=== PATIENT | female | born 1935 | race Caucasian/White ===

== ENCOUNTER 2016-05-05 09:41 | Emergency (ER) | payer MEDICARE ==
[~2016-05-05 09:41] MED LIST: ARICEPT5 MG PO; FERREX 150 PLUS1 CAP PO; FLORAJEN3 CAPS460 MG PO; KLONOPIN0.5 MG PO; SYNTHROID50 MCG PO; VITAMIN B-121000 MCG PO; VITAMIN D5000 UNIT PO; VITAMIN D50000 UNIT PO
[2016-05-05 10:58] LABS: ALBUMIN 3.2 g/dL (3.4-5.0); ALKALINE PHOSPHATASE 132 U/L (46-116); ALT (SGPT) 26 U/L (10-68); BILIRUBIN - TOTAL 0.37 mg/dL (0.2-1.3); CALC OSMOLALITY 275 mosm/kg (275-300); CALCIUM 9.1 mg/dL (8.5-10.1); CARBON DIOXIDE 27.8 mmol/L (21.0-32.0); CHLORIDE - SERUM 102 mmol/L (98-107); CREATININE - SERUM 0.8 mg/dL (0.6-1.3); GLUCOSE 101 mg/dL (74-106); POTASSIUM - SERUM 3.9 mmol/L (3.5-5.1); PROTEIN - SERUM 7.6 g/dL (6.4-8.2); SODIUM 138 mmol/L (136-145); UREA NITROGEN 12 mg/dL (7-18); eGFR NON AFRICAN AMERICAN 73 mL/min (90-120)
[2016-05-05 11:00] LABS: ALCOHOL - BLOOD (MEDICAL) < 3.0 mg/dL (0.0-10.0)
[2016-05-05 11:50] LABS: APPEARANCE CLOUDY (CLEAR); BILIRUBIN NEGATIVE (NEGATIVE); COLOR YELLOW (YELLOW); EPITHELIAL CELLS 0-5 /hpf (0-5); GLUCOSE NEGATIVE (NEGATIVE); KETONE NEGATIVE (NEGATIVE); LEUKOCYTE ESTERASE 2+ (NEGATIVE); NITRITE POSITIVE (NEGATIVE); PROTEIN TRACE mg/dL (NEGATIVE); SPECIFIC GRAVITY 1.015 (1.005-1.020); UROBILINOGEN NORMAL (NORMAL)
[2016-05-05 11:51] LABS: BACTERIA MANY /hpf (NONE SEEN); MUCUS <1+ /lpf (NONE SEEN)
[2016-05-05 11:59] LABS: UDS - AMPHET NEGATIVE QUAL (NEGATIVE); UDS - BARB NEGATIVE QUAL (NEGATIVE); UDS - BENZO NEGATIVE QUAL (NEGATIVE); UDS - COCAINE NEGATIVE QUAL (NEGATIVE); UDS - METH NEGATIVE QUAL (NEGATIVE); UDS - OPIATE NEGATIVE QUAL (NEGATIVE); UDS - PCP NEGATIVE QUAL (NEGATIVE); UDS - THC NEGATIVE QUAL (NEGATIVE)
[2016-05-05] MEDS ORDERED: NAMENDA XR14 MG PO (16:01)
== END 2016-05-05 12:05 | disposition other institution (70) ==
LOC: D.ER 09:41
PROVIDERS: Emergency Medicine
DX: F03.90 Unspecified dementia, unspecified severity, without behavioral disturbance, psychotic disturbance, mood disturbance, and anxiety (principal)

== ENCOUNTER 2016-05-05 11:57 | Inpatient (IN) | payer MEDICARE ==
[~2016-05-05] VITALS: Ht 167.6 cm; Wt 65.5 kg
--- NOTE | 2016-05-05 12:15 | NUR ---
RECEIVED PATIENT VIA WHEELCHAIR ACCOMPANIED BY HOSPITAL STAFF AND FAMILY. ADMITTED TO ROOM 1120 WITH DEMENTIA WITH BEHAVIORAL DISTURBANCES. PATIENT VERY CONFUSED AND GRABBING TELLING HIM SHE WANTS TO GO WITH HIM. DISHEVELED APPEARANCE. HANDS DIRTY AND SMELLS OF BOWEL. RELATES PATIENT HAS NOT BATHED IN 2 WEEKS. SHE HAS BEEN REFUSING THE HELP. PATIENT TAKEN TO DAYROOM SO COULD PROCEED WITH ADMISSION PROCESS. SPOKE WITH REAGARDING CODE STATUS AND RELATED BOTH HAVE DISCUSSED THIS AND THEY WANT NO HEROICS. ADMISSION PAPERWORK COMPLETED AND APPROPRIATED PAPERWORK SENT WITH PATIENTS SPOUSE. WNADERING ON UNIT AND EXIT SEEKING.
[2016-05-05] MEDS ORDERED: NAMENDA XR14 MG PO (16:01)
[2016-05-05 17:28] LABS: BASOPHILS 0.5 % (0.0-2.0); EOSINOPHILS 1.6 % (0-7); HEMATOCRIT 33.4 % (36.0-48.0); HEMOGLOBIN 10.7 g/dL (12-16); IMMATURE GRANULOCYTES 0.3 % (0-5); LYMPHOCYTES 13.4 % (15-50); MCH 27.5 pg (26.0-34.0); MCV 85.9 fL (80.0-100.0); MEAN PLATELET VOLUME 9.5 fL (7.4-10.4); MONOCYTES 7.4 % (2-11); NEUTROPHILS 76.8 % (40-80); PLATELET COUNT 421 10x3/uL (130-400); RBC 3.89 10x6/uL (4.00-5.40); RDW 14.2 % (11.5-14.5); WBC 8.7 10x3/uL (4.8-10.8)
[2016-05-05 17:39] LABS: HEMOGLOBIN A1C 5.6 % (4.8-6.0)
[2016-05-05 17:45] VITALS: BP 116/68; BMI 24.0
[2016-05-05 17:51] LABS: ALBUMIN 3.7 g/dL (3.4-5.0); ANION GAP 14.4 mmol/L (8-16); BILIRUBIN - TOTAL 0.45 mg/dL (0.2-1.3); CALCIUM 9.7 mg/dL (8.5-10.1); CARBON DIOXIDE 25.7 mmol/L (21.0-32.0); CHOL - HDL RATIO 3.9 ratio (2.3-4.1); CREATININE - SERUM 0.9 mg/dL (0.6-1.3); LDL-HDL RATIO 2.5 ratio (1.5-3.5); POTASSIUM - SERUM 4.1 mmol/L (3.5-5.1); PROTEIN - SERUM 7.7 g/dL (6.4-8.2); THYROID STIMULATING HORMONE 4.42 uIU/mL (0.36-3.74)
[2016-05-05 20:25] VITALS: BP 164/75
--- NOTE | 2016-05-05 21:00 | NUR ---
RECEIVED IN DAYROOM EXITING SEEKING AT DOORS. SAYS SHE SEES HER , BUT CAN'T TELL ME HIS NAME. SHE ONLY REMEMBER HER FIRST NAME. SEE SHIFT ASSESS- MENT FLOW SHEET FOR FURTHER DETAILS. CONTINUE POC.
[2016-05-06 08:00] VITALS: BP 160/76
--- NOTE | 2016-05-06 10:15 | NUR ---
B) PATIENT IS ANXIOUS, SHE IS CONFUSED ALL SHE CAN SAY IS "I WANT TO GO HOME" AND ASKS ABOUT HER AND HER HOUSE. SHE AMBULATES STEADILY. SHE DOES NOT COMPREHEND SIMPLE COMMANDS. SHE DID NOT KNOW HOW TO WASH HER HANDS OR BRUSH HER TEETH. I) PROVIDE PRESCRIBED MEDS AND REDIRECT NEEDED. R) PATIENT NEEDS MUCH REDIRECTION, DID WRITE A NOTE FOR HER SAYING SHE IS IN THE HOSPITAL, BUT PATIENT WAS NOT ABLE TO UNDERSTAND. SHE IS COMPLIANT WITH MEDS AND SHE DID RECEIVE A SHOWER. P) CONTINUE PLAN OF CARE.
--- NOTE | 2016-05-06 12:00 | NUR ---
PATIENT TALKS NONSTOP, SHE WANTS TO "GO HOME" AND TALKS ABOUT HER AND HER HOUSE, SHE WILL NOT REDIRECT.
[2016-05-06 14:38] VITALS: Ht 167.6 cm; Wt 65.5 kg
--- NOTE | 2016-05-06 15:00 | NUR ---
PATIENT TALKING ABOUT HER HOUSE AND WILL SOMEONE DRIVE HER HOME, PATIENT IS NOT REDIRECTABLE.
--- NOTE | 2016-05-06 17:00 | NUR ---
PATIENT CONSTANTLY TALKING ABOUT HER HOUSE AND GOING HOME, SHE HAS NOT BEEN QUIET ABOUT THIS SUBJECT FOR FIVE MINUTES. SHE DOES NOT COMPREHEND AND SHE DOES NOT REDIRECT.
[2016-05-06 19:30] VITALS: BP 156/67
--- NOTE | 2016-05-06 22:50 | NUR ---
PATIENT IN DAYROOM, IN WHEELCHAIR, LOOKING AT REFLECTION IN GLASS DOOR. ORIENTED TO FIRST NAME ONLY. SHE IS UNABLE TO FOLLOW DIRECTIONS, HAS LOOSE ASSOCIATIONS AND SUSPICIOUS. PATIENT MUMBLES ABOUT HOW TERRIBLE EVERYTHING IS. REFUSED TO TAKE MEDICATION, EVEN AFTER SEVERAL ATTEMPTS AND COAXING. CONTINUE TO MONITOR, CONTINUE PLAN OF CARE
--- NOTE | 2016-05-07 00:21 | NUR ---
PATIENT UP AT MIDNIGHT WALKING DOWN HALLWAY, CONFUSED AND WAS RETURNED TO HER ROOM. PATIENT WAS VERY RELUCTANT AND INSISTENT. PRESSING HER FINGERNAILS INTO STAFFS HAND. FINGERNAILS CAN BE A POTENTIAL PROBLEM. CONTINUE TO MONITOR
[2016-05-07 06:13] LABS: RAPID PLASMA REAGIN Non Reactive (Non Reactive)
--- NOTE | 2016-05-07 06:28 | NUR ---
Patient refused morning medication. She was demanding to know where her was. She does not understand why she is in the hospital after she is reoriented. She is only oriented to self and is unable to follow direction. Patient becomes very agitated especially after she is told that she is in the hospital. continue to monitor, continue plan of care.
[2016-05-07 07:53] VITALS: BP 132/52
--- NOTE | 2016-05-07 13:08 | NUR ---
(B)RECEIVED PATIENT SITTING IN A CHAIR AT THE NURSES STATION. ORIENTED TO SELF ONLY. CONSTANTLY IS LOOKING FOR ALPHONSE, ASKING STAFF "WHERE IS ALPHONSE?" WHEN PATIENT IS REORIENTED TO HER BEING IN THE HOSPITAL AND ALPHONSE IS HOME PATIENT CAN NOT PROCESS THE INFORMATION AND WILL TELL NURSE "I'M IN MY HOUSE. NOW WHERE IS ALPHONSE?" ARGUES RELATING "I'M NOT IN THE HOSPITAL. WHY AM I IN THE HOSPITAL?" THEN ARGUES SHE DOES NOT HAVE AN INFECTION. OBSERVED TALKING TO IMAGES IN THE GLASS DOOR THINKING "ALPHONSE" IS OUT THERE AND HAS COME TO TAKE HER HOME. ALSO EXHIBITS IMPAIRED IMPULSE CONTROL EVIDENCED BY TOSSING A BLANKET ON THE TABLE VERBALIZING "SON OF A AUNDREA." OBSERVED SITTING WITH A BLACK SOCK ON HER RIGHT HAND AND ARM THAT SHE WAS PLACING ITEMS IN. (I)ADMINISTER MEDS AND MONITOR COMPLIANCE. REORIENT NEEDED. (R)MED COMPLIANT. POOR REORIENTATION DUE TO IMPAIRED ABILITY TO COMPREHEND, PROCESS AND MAINTAIN INFORMATION. SHORT TERM MEMORY EXTREMELY EFFECTED AEB BEFORE YOU CAN FINISH ANSWERING PATIENT'S QUESTION SHE IS ALREADY ASKING THE SAME QUESTION AGAIN. EXTREMELY CONFUSED AND DISORIENTED. (P)CONTINUE POC AND MAINTAIN FALL PRECAUTIONS.
[2016-05-07 19:30] VITALS: BP 126/55
--- NOTE | 2016-05-08 03:22 | NUR ---
Patient in dayroom, looking at reflection in door. She is having hallucinations, sees a thin man by table in dayroom. Patient reoriented. She was pleasant, and cooperative with medication. She is very concerned about her . Patient is oriented to self, first and last name and date of however, not oriented to place, time or situation. continue to monitor, continue plan of care.
--- NOTE | 2016-05-08 07:20 | NUR ---
SITTING IN CHAIR IN HALLWAY AT NURSES STATION.ASSESSMENT COMPLETED.IS ORIENTED TO SELF ONLY.COOPERATIVE WITH STAFF.WILL CONTINUE WITH PLAN OF CARE,MONITOR FOR CHANGES,SAFETY.
[2016-05-08 10:16] VITALS: BP 169/67
--- NOTE | 2016-05-08 16:49 | NUR ---
HAS SAT IN DINNING ROOM LOOKING FOR SPOUSE MOST OF DAY.REPEATS THE SAME THING OVER AND OVER "I AM SO WORRIED",AND "I LOVE HIM SO MUCH".VOICES THAT SHE SEES HER OUTSIDE,AND THINKS A VISITOR IS HER EVEN THOUGH SHE SEES HIM UP CLOSE.TEARFUL WITH TEARS OBSERVED ON HER CHEEKS.
[2016-05-08 19:30] VITALS: BP 156/69
--- NOTE | 2016-05-08 20:48 | NUR ---
RECEIVED IN DINING ROOM. SITTING IN CHAIR AT TABLE WITH PEERS SOCIALIZING AT TIMES. WANTING HER WHERE HER IS. CONFUSED. NO SIGNS OF HALLUCINATIONS. REDIRECT AND REORIENT NEEDED. PM MEDS GIVEN ORDERED. CONTINUES TO SIT AT TABLE WITH PEER. CONTINUE PLAN OF CARE
[2016-05-09 10:11] LABS: VITAMIN D 25 HYDROXY 25.7 ng/mL (30.0-100.0)
[2016-05-09 11:16] VITALS: BP 135/82
--- NOTE | 2016-05-09 14:16 | PSY ---
PATIENT NAME:LOWELL JALLOH MEDICAL RECORD: [id number] : 37 LOCATION:[facility] ADMISSION DATE: 05/05/16 ACCOUNT: [id number] PSYCHIATRIC EVALUATION DATE OF EVALUATION: 05/06/16 IDENTIFYING DATA: The patient is 80 years old and she is admitted to the hospital on a voluntary basis. CHIEF COMPLAINT: Confusion. HISTORY OF PRESENT ILLNESS: The patient is severely impaired. She is known to me from previous clinical contact. She was here on this unit about 6 months ago. She has been living with her . She has become acutely confused and when brought to the Emergency Room, became combative and aggressive with staff. She was also found to have a urinary tract infection. PAST MEDICAL HISTORY: Significant for hypothyroidism. PAST PSYCHIATRIC HISTORY: Significant for an established diagnosis of dementia. FAMILY HISTORY: Unknown. ALLERGIES: No known drug allergies. CURRENT MEDICATIONS: Include Klonopin, Synthroid, and Aricept. SOCIAL HISTORY: The patient is . She does have adult children. She has no history of drug or alcohol abuse and apparently functioned reasonably well both socially and occupationally. MENTAL STATUS EXAMINATION: The patient is awake, alert, and oriented to person and place only. Her mood is flat. Her affect is constricted. Thought processes are disorganized and her memory, concentration, and abstraction abilities are severely impaired. She denies that she would seek to harm herself or others and has not been aggressive so far. ASSESSMENT: AXIS I: Senile dementia of the Alzheimer's type with behavioral disturbances. AXIS II: None. AXIS III: Hypothyroidism, urinary tract infection. AXIS IV: Moderate stressors. AXIS V: Global assessment of functioning is 25. PLAN: At this time, the patient is admitted to the hospital secondary to confusion and aggressive behavior. She will be treated with memory enhancing and mood stabilizing medications as well as an antibiotic. Her long-term prognosis is guarded. I do not think it is reasonable to care for her at home, but I am also aware her wants to do this and is probably going to insist upon taking her home. I do not think this rises to the level of reporting it to adult protective services, although I do think he is trying to manage something that is beyond his ability to handle. I will encourage the patient's to seek [facility] placement. TRANSINT:[id number] Voice Confirmation ID: [id number] DOCUMENT ID: [id number] DONTE HADDAD MD at 1416 CC: [id number] DICTATION DATE: 05/06/16 1455 SHAKER TENDER: 05/06/[address] [facility] [address] [id number]
--- NOTE | 2016-05-09 18:10 | NUR ---
RECEIVED PATIENT THIS AM, ALERT AND ORIENTED TO SELF ONLY. EXIT SEEKING AND CONSISTENTLY LOOKING AND ASKING FOR HER . UNABLE TO REDIRECT WITHOUT PATIENT BECOMING ARGUMENTIVE. USE OF PROFANITY AT STAFF AND ATTEMPTS TO BECOME COMBATIVE. NO EVIDENCE OF REORIENTATION. COMPLIANT WITH MEDICATIONS. DISTRATION DETERED COMBATIVENESS. SAFETY MAINTAINED.
[2016-05-09 19:42] VITALS: BP 135/59
--- NOTE | 2016-05-10 02:07 | NUR ---
B) Recieved sitting in day room alert and oriented to self, very confused and looking for her , I) Administered perscribed medications, redirected and oriented as needed, R) Medication compliant, difficult to redirect and no sucess to orient P) Continue plan of care, continue to monitor.
[2016-05-10 08:00] VITALS: BP 130/47
--- NOTE | 2016-05-10 12:14 | NUR ---
Nutrition Follow Up: Chart reviewed. Pt is eating 57% meal avg on a regular diet. Pt is receiving Ensure with meals. Wt loss 5# since admit. +BM 05/09/16. Meds noted. No new labs to assess. Pt with fair po intake at this time. Rec continue current diet, supplement regimen. RD following.
--- NOTE | 2016-05-10 14:35 | PN ---
PATIENT:LOWELL JALLOH MEDICAL RECORD: [id number] LOCATION:[facility] ADMISSION DATE: 05/05/16 PROGRESS NOTE DATE OF SERVICE: 05/09/2016 SUBJECTIVE: The patient's case was discussed with staff. She has no new complaint. OBJECTIVE: The patient denies intent to harm herself or others. She generally tolerates her medicines well. ASSESSMENT: No change in diagnoses. PLAN: The patient has recently been quite aggressive and required p.r.n. medication. I am going to start her on a low dose of Geodon to address this behavioral disinhibition. She has also made some delusional statements. TRANSINT:[id number] Voice Confirmation ID: [id number] DOCUMENT ID: [id number] DONTE HADDAD MD at 1435 CC: [id number] DICTATION DATE: 05/09/16 1512 ACCOUNTS RECEIVABLE ANALYST: 05/09/16 2137 ADM IN [address] [id number] [place] [address]
--- NOTE | 2016-05-10 14:58 | NUR ---
(B)RECEIVED PATIENT SITTING IN A CHAIR AT THE NURSES STATION. ORIENTED TO SELF ONLY RELATING "AT HER HOUSE. SUGARS. I WANT ALPHONSE THOUGH." PREOCCUPIED WITH ALPHONSE AND WANTING TO GO HOME TO ALPHONSE. POOR INTERACTION WITH OTHERS DUE TO IMPAIRED ABILTIY TO COMPREHEND, PROCESS AND MAINTAIN INFORMATION. (I)ADMINISTER MEDS AND MONITOR COMPLIANCE. REORIENT NEEDED. (R)MED COMPLIANT. UNABLE TO REORIENT DUE TO IMPAIRED ABILTIY TO COMPREHEND AND PROCESS INFORMATION. JUST STARES BLANKLY AND TALKS ABOUT ALPHONSE. (P)CONTINUE POC AND MAINTAIN FALL PRECAUTIONS.
--- NOTE | 2016-05-10 19:21 | NUR ---
RECEIVED IN DAYROOM. SITTING IN WHEELCHAIR WITH WITH PEERS AT HER SIDE. CONFUSED. NOT EXIT SEEKING. REDIRECT AND REORIENT NEEDED. REINFORCE FALLS SAFETY. CONTINUES TO SIT QUIETLY IN WHEELCHAIR. CONTINUE PLAN OF CARE
--- NOTE | 2016-05-10 22:00 | NUR ---
PATIENT BECAME INCREASINGLY RESTLESS IN DAYROOM. YELLING OUT FOR ALPHONSE. ORIENTED TO SELF ONLY. VERY CONFUSED. REDIRECT AND REORIENT NEEDED.
[2016-05-11 09:50] VITALS: BP 142/57
--- NOTE | 2016-05-11 12:49 | PN ---
PATIENT:LOWELL BRAR MEDICAL RECORD: [id number] LOCATION:[facility] ADMISSION DATE: 05/05/16 PROGRESS NOTE DATE OF SERVICE: 05/10/2016 SUBJECTIVE: The patient's case was discussed with staff. She has no new complaint. OBJECTIVE: The patient denies intent to harm herself or others. She is oriented only to person. Her mood is angry. Her affect is constricted. ASSESSMENT: No change in diagnoses. PLAN: The patient is calmer today, but I am afraid that I may have given her too much Geodon and I am going to watch for accumulation and sedation. A 40 mg a day may be too much for this elderly woman to tolerate, especially since she is already taking Klonopin. I have asked for her to be tested by Dr. Caroline Shell, a neuropsychologist, indicates that she tested Mrs. Brar in the past. She was severe and that she is too severe to test at this time. TRANSINT:[id number] Voice Confirmation ID: [id number] DOCUMENT ID: [id number] DONTE HADDAD MD at 1249 CC: [id number] DICTATION DATE: 05/10/16 1444 BLADDER TRIMMER: 05/10/16 1721 ADM IN [place] [id number] [place] [id number]
--- NOTE | 2016-05-11 16:27 | NUR ---
(B)RECEIVED PATIENT SITTING IN A CHAIR AT THE NURSE'S STATION.ORIENTED TO SELF ONLY. MAKES UNRECOGNIZABLE SOUNDS AT TIMES. CUSRSES RANDOMLY. OBSERVED RUBBING A MALE PATIENT ON THE LEG. DOES NOT FOLLOW THE TOPIC OF CONVERSATIONM. (I)ADMINSTER MEDS AND MONITOR COMPLIANCE. REDIRECT FOR INAPPROPRIATE TOUCHING. (R)MED COMPLIANT. POOR REDIRECTION AND STARTS MUMBLING TO SELF AND REPEATING THE SAME WORDS OVER AND OVER AGAIN. IMPAIRED ABILITY TO COMPREHEND, PROCESS AND MAINTAIN INFORMATION. (P)CONTINUE POC AND MAINTAIN FALL PRECAUTIONS.
[2016-05-11 19:29] VITALS: BP 139/67
--- NOTE | 2016-05-11 23:16 | NUR ---
PATIENT IN HALLWAY IN CHAIR, ORIENTED TO FIRST NAME, CALM AND HAPPY. UNABLE TO FOLLOW CONVERSATION. COMPLIANT WITH MEDICATION, DOESN'T SEEM TO BE HALLUCINATING AT THIS TIME. CONTINUE TO MONITOR, CONTINUE PLAN OF CARE
[2016-05-12 08:30] VITALS: BP 124/60
--- NOTE | 2016-05-12 14:55 | NUR ---
(B)RECEIVED PATIENT SITTING IN A CHAIR AT THE NURSE'S STATION. ORIENTED TO SELF ONLY. DOES NOT KNOW SHE IS IN THE HOSPITAL AND IS FREQUENTLY LOOKING FOR ALPHONSE. INTRUSSIVE WITH A FEMALE THINKING SHE IS HER ALPHONSE AND WILL ARGUE WITH STAFF RELATING THAT IS HER . TRIES TO CARRY ON A CONVERSATION WITH THIS PATIENT IF IT IS HER . PATIENT PULLED HER SHIRT UP EXPOSING HER BREAST TO THIS FEMALE PATIENT. (I)ADMINISTER MEDS AND MONITOR COMPLIANCE. REDIRECT FOR INTRUSSIVE BEHAVIOR.(R)MED COMPLIANT. REMAINS CONFUSED AND DELUSIONAL. ARGUES WITH STAFF REGARDING THE DELUSION OF A FEMALE PATIENT BEING HER AND CALLING STAFF "YOU GOD DAMN SON OF A BITCH. YELLED OUT AT STAFF WHEN HER VISITED AND STAFF WAS TRYING TO GET HER TO GO TO THE DINING ROOM AND VISIT. UNABLE TO SEPARATE FANTASY FROM REALITY. (P)CONTINUE POC AND MAINTAIN FALL PRECAUTIONS.
--- NOTE | 2016-05-12 15:28 | PN ---
PATIENT:LOWELL JALLOH MEDICAL RECORD: [id number] LOCATION:[facility] ADMISSION DATE: 05/05/16 PROGRESS NOTE DATE OF SERVICE: 05/11/2016 SUBJECTIVE: The patient's case was discussed with staff. She has no new complaint. OBJECTIVE: The patient is sedated as I had feared yesterday. She is in good behavioral control, but that is not an improvement in her condition. She is simply being given too much medicine. ASSESSMENT: No change in diagnoses. PLAN: The patient will be given the same medications, but at a lower dose. I am going to cut the Ativan down. I am going to cut the Klonopin down by 1/3 and the Geodon by 1/2. It may take a couple of days for this to re-equilibrate, but it well. TRANSINT:[id number] Voice Confirmation ID: [id number] DOCUMENT ID: [id number] DONTE HADDAD MD at 1528 CC: [id number] DICTATION DATE: 05/11/16 1252 NURSE REVIEWER: 05/11/16 2146 ADM IN [facility] [address] [place] [address]
[2016-05-12 22:36] VITALS: BP 126/60
--- NOTE | 2016-05-13 01:55 | NUR ---
PATIENT IN DINING ROOM, SITTING ALONE AT TABLE, SEEMING DEPRESSED. SHE REMEMBERED THAT HER CAME TO SEE HER TODAY. SHE SAID SHE MISSES HIM. PATIENT REDIRECTED, STARTED SMILING. SHE IS ORIENTED TO SELF, NOT HALLUCINATING, COMPLIANT WITH MEDICATION. CONTINUE TO MONITOR.
[2016-05-13 08:30] VITALS: BP 123/59
[2016-05-13] MEDS ORDERED: NAMENDA5 MG PO (12:10)
[2016-05-13] MEDS ORDERED: ZOLOFT50 MG PO (12:11)
[2016-05-13] MEDS ORDERED: GEODON20 MG PO (12:11)
[2016-05-13] MEDS ORDERED: FLORAJEN3 CAPS460 MG PO (12:11)
[2016-05-13] MEDS ORDERED: SYNTHROID75 MCG PO (12:11)
--- NOTE | 2016-05-13 12:32 | NUR ---
B) PATIENT IS AWAKE AND ALERT, SHE IS CONFUSED. SHE DOES NOT KNOW WHERE SHE IS LOCATED, SHE CALLS OUT FOR [facility]", BUT SHE BELIEVES THE MEN HERE ARE "[facility]" SHE CAN AMBULATE, BUT SHE IS SLOW AND UNSTEADY. I) PROVIDE PRESCRIBED MEDS. R) PATIENT IS COMPLIANT WITH MEDS, SHE REDIRECTS, BUT SHE REQUIRES GENTLE REDIRECTION, CALM, SOFT VOICE AND A SMILE. PATIENT HAS NO UNDERSTANDING EVEN IF SHE ASKS A QUESTION AND STAFF ANSWER SHE DOES NOT UNDERSTAND. P) CONTINUE PLAN OF CARE.
--- NOTE | 2016-05-13 18:20 | NUR ---
PATIENT WALKED INTO BATHROOM AND SHE PULLED HER PANTS DOWN BEFORE SHE REACHED THE TOILET AND URINATED ON THE FLOOR THEN SLIPPED ON THE FLOOR. PATIENT HAS A REDDENED AREA ON OUTER PART OF HER LEFT KNEE, NO OTHER NOTICEABLE INJURIES, PATIENT ABLE TO DO AROM IN ALL FOUR EXTREMITIES. PATIENT IS CALM, VSS, BP 97/52, T 98.2, R 18, P 76 SPO2 95%.
--- NOTE | 2016-05-13 18:28 | NUR ---
PAGED DR. ROCHE TO LET HIM KNOW PATIENT FELL.
--- NOTE | 2016-05-13 18:28 | NUR ---
CALLED AND SPOKE TO PATIENT'S SPOUSE ABOUT HER FALL. HE SAID "I KNOW THAT'S WHY I CAN'T TAKE CARE OF HER HERE ANYMORE".
[2016-05-13 19:38] VITALS: BP 162/60
--- NOTE | 2016-05-13 22:00 | NUR ---
B) RECEIVED IN DAYROOM SITTING IN CHAIR, ALERT TO SELF ONLY, VERY CONFUSED. CALM AND COOPERATIVE WITH ASSESSMENT. NO SIGNS OF AGGRESSION NOTED. I) PROVIDE PRESCRIBED MEDICATIONS AND MONITOR COMPLIANCE. REDIRECT AND REORIENT NEEDED. VSS. R) MEDICATION COMPLIANT CRUSHED IN APPLESAUCE. P) CONTINUE CURRENT PLAN OF CARE.
[2016-05-14 10:36] VITALS: BP 140/56
--- NOTE | 2016-05-14 12:49 | NUR ---
B) PATIENT IS VERY CONFUSED AND SHE HAS NO IDEA WHERE SHE IS LOCATED, SHE KEEPS THINKING THAT SOME OF THE MEN AND OTHER WOMEN ARE HER AND FOR SOME REASON SHE HAS LIFTED HER BLOUSE AT TIMES. SHE AMBULATES, BUT SHE IS UNSTEADY AND SLOW. I) PROVIDE PRESCRIBED MEDS AND REDIRECT NEEDED. R) PATIENT IS COMPLIANT WITH MEDS, SHE DID ALLOW STAFF TO FIX HER HAIR IT WAS ALL OVER. P) CONTINUE PLAN OF CARE.
[2016-05-14 19:30] VITALS: BP 118/53
--- NOTE | 2016-05-14 20:30 | NUR ---
B)RECEIVED IN DAYROOM SITTING ON SOFA WATCHING TV. CALM AND COOPERATIVE WITH ASSESSMENT AND CARE. AMBULATES SLOWLY IN DAYROOM AT TIMES. SHE DOES GO TO A MALE PATIENT AND TRIES TO CONSOLE HIM. I) ADMINISTER PRESCRIBED MEDS AND REDIRECT PATIENT NEEDED TO APPROPRIATE BEHAVIOR, VSS. R) MEDICATION COMPLIANT. RESTLESS TONIGHT, BUT QUIET. WILL CONTINUE WITH CURRENT POC.
[2016-05-15 07:00] VITALS: BP 130/51
--- NOTE | 2016-05-15 08:10 | NUR ---
HALDOL 2MG IM TO RT BUTTOCK GIVEN DUE TO HER BEING VERY ARGUMENTIVE ,ATTEMPTING TO HIT THIS NURSE AND REFUSING TO GET OUT OF BED.
--- NOTE | 2016-05-15 08:45 | NUR ---
MUCH CALMER AND MORE COOPERATIVE NOW.IS ORIENTED TO SELF ONLY.VOICES SHE IS IN [place].CAN AMBULATE BUT IS SITTING IN RECLINER.WILL CONTINUE WITH PLAN OF CARE,MONITOR FOR CHANGES AND SAFETY.
[2016-05-15 19:34] VITALS: BP 118/80
--- NOTE | 2016-05-16 00:39 | NUR ---
B)Recieved sitting in the Day room, alert and oriented to self, confused and looking for her , I) Administered perscribed medications and redirected as needed, R) Medication compliant, cooperative with care and assessment, P) Continue plan of care, continue to monitor.
[2016-05-16 09:10] VITALS: BP 165/65
--- NOTE | 2016-05-16 09:50 | NUR ---
B.) Alert and oriented to self only. Patient has no insight to place or situation. I.) Administer medications and monitor compliance. Reorient and redirect as need. Encourage group participation. Monitor safety. R.) Compliant with medications. Calm and cooperative with care. Sits quietly in chair and occasionally ambulates on unit. No evidence of reorientation. Good behavior control with no aggression. Safety maintained. P.) Continue with plan for discharge today.
--- NOTE | 2016-05-16 10:54 | PN ---
PATIENT:LOWELL JALLOH MEDICAL RECORD: [id number] LOCATION:[facility] ADMISSION DATE: 05/05/16 PROGRESS NOTE DATE OF SERVICE: 05/13/2016 SUBJECTIVE: No new complaint. OBJECTIVE: The patient has been doing overall better. According to staff, she is sleeping better. She is tolerating medications without difficulty. [facility] PHYSICAL EXAMINATION: On exam, mood is euthymic. Affect is somewhat shallow. Speech is rather terse. Content of thought is negative for overt psychosis. Sensorium is unchanged. ASSESSMENT: No change in diagnoses. PLAN: 1. Maintain all current medications. 2. Anticipate discharge early next week. TRANSINT:[id number] Voice Confirmation ID: [id number] DOCUMENT ID: [id number] HERIBERTO BACA III, MD at 1054 CC: [id number] DICTATION DATE: 05/13/16 1228 COP EXAMINER: 05/13/168 ADM IN [id number] [place] [address]
--- NOTE | 2016-05-16 10:56 | NUR ---
called and updated pt's spouse Evens Brar on pt discharging today to the [facility] at 1300. reviewed discharge information and verbalized understanding. thanked staff for all of the help and the work we did to make his better. called [facility] and updated them on discharge today with pickup time.
--- NOTE | 2016-05-16 13:35 | NUR ---
Report given to [facility] staff nurse Araseli Wilson transport[facility]orazon here to transport patient. Patient discharged with no incident. All personal belongings released to patient. Patient spouse to meet her at facility.
--- NOTE | 2016-05-17 11:40 | PN ---
PATIENT:LOWELL JALLOH MEDICAL RECORD: [id number] LOCATION:[facility] ADMISSION DATE: 05/05/16 PROGRESS NOTE DATE OF SERVICE: 05/16/2016 SUBJECTIVE: No new complaint. OBJECTIVE: The patient has done well over the weekend. She is tolerating medications well. She is due for discharge today to the [facility]. On exam, mood is euthymic. Affect bland. Speech is rather terse. Content of thought is unchanged. Sensorium unchanged. ASSESSMENT: No change in diagnosis. PLAN: 1. We will maintain current treatment plan. 2. Plan discharge for later today. TRANSINT:[id number] Voice Confirmation ID: [id number] DOCUMENT ID: [id number] HERIBERTO BACA III, MD at 1140 CC: [id number] DICTATION DATE: 05/16/16 1138 CLINICAL LAB SPECIALIST: 05/16/16 1436 DIS IN 05/16/[address] [facility] [address] [place] [address]
--- NOTE | 2016-05-23 14:12 | PN ---
PATIENT:LOWELL JALLOH MEDICAL RECORD: [id number] LOCATION:[facility] ADMISSION DATE: 05/05/16 PROGRESS NOTE DATE OF SERVICE: 05/12/2016 SUBJECTIVE: The patient's case was discussed with staff. She has no new complaint. OBJECTIVE: The patient is quite confused. My concerns about sedation are incorrect. She has decided that a woman who is also a patient here is her . Trying to explain to her that that it is not her is not effective. The patient, who is the object of this is very distressed by the situation and keeps on trying to explain she is not her . The situation is potentially volatile. ASSESSMENT: No change in diagnoses. PLAN: The patient will be maintained on current medicines, but I am going to start a low dose of Zoloft for antidepressant effect. In addition to this, I am going to put her back on the Klonopin at a higher dose of 0.5 mg 3 times daily. TRANSINT:[id number] Voice Confirmation ID: [id number] DOCUMENT ID: [id number] DONTE HADDAD MD at 1412 CC: [id number] DICTATION DATE: 05/12/16 1531 ROUTING MACHINE OPERATOR: 05/12/16 2224 DIS IN 05/16/16 [id number] [place] [address]
--- NOTE | 2016-05-25 17:40 | DS ---
PATIENT:LOWELL JALLOH :39 MEDICAL RECORD: [id number] DISCHARGE SUMMARY ADMISSION DATE: 05/05/16 DISCHARGE DATE: 05/16/16 Psychiatric Discharge Summary IDENTIFYING DATA: The patient is 80 years old and she was admitted to the hospital on a voluntary basis secondary to confusion. The patient is severely impaired and is known to me from previous contact. She was here on this particular unit of the hospital about 6 months ago. She has been living with her . She became acutely confused and was brought to the Emergency Room, combative and aggressive with staff. HOSPITAL COURSE: The patient was admitted to the hospital and fully evaluated from both a medical, psychological, and social standpoint. She was found to have a urinary tract infection, which was treated with an antibiotic. This did help, but she also needed adjustments in her memory enhancing and mood stabilizing medications. She subsequently showed significant improvement and was transitioned out of the hospital. DISCHARGE DIAGNOSES: AXIS I: Senile dementia of the Alzheimer's type with behavioral disturbances. AXIS II: None. AXIS III: Hypothyroidism, urinary tract infection. AXIS IV: Moderate stressors. AXIS V: Global assessment of functioning is 35. PLAN: At the time of discharge, the patient was in good behavioral control with limited insight about her condition. She was tolerating her medicines well and did not represent an acute risk to herself or others. Her long-term prognosis is guarded. TRANSINT:[id number] Voice Confirmation ID: [id number] DOCUMENT ID: [id number] DONTE HADDAD MD at 1740 CC: [id number] DICTATION DATE: 05/24/16 1438 TANK REFINISHER: 05/25/16 0255 DIS IN 05/16/16 [facility] [address] [place] [address]
== END 2016-05-16 13:35 | disposition home or self-care (01) | DRG 57 ==
LOC: D.PSYCH 11:57
PROVIDERS: ADMIT Psychiatry & Neurology Psychiatry
DX: G30.1 Alzheimer's disease with late onset (principal); F02.81 Dementia in other diseases classified elsewhere, unspecified severity, with behavioral disturbance; F05 Delirium due to known physiological condition; N39.0 Urinary tract infection, site not specified; E03.9 Hypothyroidism, unspecified; B96.20 Unspecified Escherichia coli [E. coli] as the cause of diseases classified elsewhere; E78.5 Hyperlipidemia, unspecified; D64.9 Anemia, unspecified

== ENCOUNTER 2016-05-28 19:46 | Inpatient (IN) | payer MEDICARE ==
[~2016-05-28] VITALS: Ht 172.7 cm; Wt 73.9 kg
--- NOTE | ~2016-05-28 | CN ---
PATIENT NAME:LOWELL JALLOH MEDICAL RECORD: [id number] : 39 LOCATION:[facility] ADMIT DATE: 05/30/16 ACCOUNT: [id number] CONSULTING PHYSICIAN: LISA DIXON MD REFERRING PHYSICIAN: ROSELIA KEVIN MD DATE OF CONSULTATION: 05/30/2016 Gastrointestinal Consultation REFERRING PHYSICIAN: Roselia Kevin MD HISTORY OF PRESENT ILLNESS: The patient is a 80-year-old white female with severe underlying dementia, who was basically admitted after the staff here saw some blood in her stool for the past few days. She was subsequently admitted for further evaluation. She can give no history whatsoever. However, history is obtained from her . As far as she knows, she has never had an endoscopy. She denies any abdominal pain. PAST MEDICAL HISTORY: As above. She also has hypothyroidism. ALLERGIES: No drug allergies. HOME MEDICATIONS: Include Klonopin, Namenda, Zoloft, Geodon and Synthroid. FAMILY HISTORY: Negative for GI disease. SOCIAL HISTORY: The patient is a nonsmoker, nondrinker. REVIEW OF SYSTEMS: Noncontributory other than HPI. PHYSICAL EXAMINATION: GENERAL: Reveals an elderly white female in no acute distress, but is obviously demented. VITAL SIGNS: Stable. She is afebrile. CHEST: Clear. HEART: Regular rate and rhythm. ABDOMEN: Soft, nontender. EXTREMITIES: No edema. LABORATORY DATA: Reveals a white count of 8000, hematocrit 29, MCV of 85, platelet count 328,000. Electrolytes normal. BUN 19, creatinine 0.8. Liver enzymes are normal. Albumin is low at 2.8. She is heme positive. CT of the abdomen and pelvis reveals abnormal appearance of the ascending colon and cecum suggesting ____ core mass in both areas, very suggestive of malignancy. She also has cholelithiasis, but otherwise her exam was normal. IMPRESSION 1. New onset of gastrointestinal bleed of unclear etiology, most likely due to her right-sided colon cancer is noted on her CT of the abdomen. 2. Severe dementia. RECOMMENDATION: 1. Discussed at length with her . He does not want to put her through a colonoscopy, surgery, etc. with her severe underlying dementia. He is wanting conservative/supportive management, possibly with hospice involvement. I CONSULT REPORT [id number] LOWELL JALLOH certainly agree with this decision. 2. Check a CEA level, possibly repeat in a month to try to "confirm" her malignancy. 3. Transfuse as needed. 4. She is at risk for developing an obstruction in the right side of her colon. 5. We will see on a p.r.n. basis. TRANSINT:[id number] Voice Confirmation ID: [id number] DOCUMENT ID: [id number] LISA DIXON MD CC: ROSELIA KEVIN MD [id number] DICTATION DATE: 05/30/16 1627 SCIENTIFIC GLASS BLOWER: 05/30/16 2100 ADM IN [facility] [address] [id number]
[~2016-05-28 19:46] MED LIST changes: +GEODON20 MG PO; +NAMENDA XR14 MG PO; +NAMENDA5 MG PO; +SYNTHROID75 MCG PO; +ZOLOFT50 MG PO
[2016-05-28 20:53] LABS: BASOPHILS 0.1 % (0.0-2.0); EOSINOPHILS 0.4 % (0-7); HEMATOCRIT 29.6 % (36.0-48.0); HEMOGLOBIN 9.2 g/dL (12-16); IMMATURE GRANULOCYTES 0.4 % (0-5); LYMPHOCYTES 8.2 % (15-50); MCH 26.4 pg (26.0-34.0); MCHC 31.1 g/dL (31.0-37.0); MCV 85.1 fL (80.0-100.0); MEAN PLATELET VOLUME 9.1 fL (7.4-10.4); MONOCYTES 5.9 % (2-11); RBC 3.48 10x6/uL (4.00-5.40); RDW 14.7 % (11.5-14.5); WBC 8.4 10x3/uL (4.8-10.8)
[2016-05-28 20:54] LABS: PLATELET COUNT 328 10x3/uL (130-400)
[2016-05-28 21:04] LABS: APTT 31.2 SECONDS (22.8-39.4); INR 0.98 (0.85-1.17); PROTIME 12.8 SECONDS (11.6-15.0)
[2016-05-28 21:11] LABS: ALBUMIN 2.8 g/dL (3.4-5.0); ANION GAP 11.7 mmol/L (8-16); BILIRUBIN - TOTAL 0.26 mg/dL (0.2-1.3); CALCIUM 8.5 mg/dL (8.5-10.1); CARBON DIOXIDE 23.1 mmol/L (21.0-32.0); CREATININE - SERUM 0.8 mg/dL (0.6-1.3); PROTEIN - SERUM 7.1 g/dL (6.4-8.2)
[2016-05-28 21:15] LABS: POTASSIUM - SERUM 2.8 mmol/L (3.5-5.1)
--- NOTE | 2016-05-29 00:40 | NUR ---
PT'S CT WAS DELAYED DUE TO PT NOT WANTING TO LAY DOWN FOR CT SCAN AND PT NOT WANTING TO DO THE CT SCAN AT ALL. A NURSE IS TO COME OVER AND HELP WITH THIS PATIENT - PER DR COLLAZO.
[2016-05-29 02:31] VITALS: BP 116/44; BMI 24.8
[2016-05-29 02:57] LABS: BASOPHILS 0.1 % (0.0-2.0); EOSINOPHILS 0.4 % (0-7); HEMATOCRIT 27.7 % (36.0-48.0); HEMOGLOBIN 8.8 g/dL (12-16); IMMATURE GRANULOCYTES 0.1 % (0-5); LYMPHOCYTES 9.8 % (15-50); MCH 26.5 pg (26.0-34.0); MCHC 31.8 g/dL (31.0-37.0); MCV 83.4 fL (80.0-100.0); MEAN PLATELET VOLUME 9.1 fL (7.4-10.4); MONOCYTES 8.1 % (2-11); NEUTROPHILS 81.5 % (40-80); PLATELET COUNT 292 10x3/uL (130-400); RBC 3.32 10x6/uL (4.00-5.40); RDW 14.6 % (11.5-14.5); WBC 6.8 10x3/uL (4.8-10.8)
[2016-05-29 03:14] LABS: ALBUMIN 2.7 g/dL (3.4-5.0); ANION GAP 12.8 mmol/L (8-16); BILIRUBIN - TOTAL 0.21 mg/dL (0.2-1.3); CALCIUM 8.5 mg/dL (8.5-10.1); CARBON DIOXIDE 22.2 mmol/L (21.0-32.0); CREATININE - SERUM 0.8 mg/dL (0.6-1.3); MAGNESIUM - SERUM 1.7 mg/dL (1.8-2.4); PHOSPHOROUS 2.9 mg/dL (2.5-4.9); PROTEIN - SERUM 6.5 g/dL (6.4-8.2)
--- NOTE | 2016-05-29 06:01 | NUR ---
PATIENT SLEEPING IN BED, LEVI MAT ON, /POA AT BEDSIDE. BED IN LOWEST LOCKED POSITION, BED RAILS UP X2. CALL LIGHT WITHIN REACH.
--- NOTE | 2016-05-29 07:30 | NUR ---
RECIEVED PT DURING WALKING ROUNDS. PT RESTING IN BED WITH NO COMPLAINTS OF PAIN OR DISCOMFORT AT THIS TIME. PT ORIENTED TO SELF ONLY. ASSESSMENT DONE PER FLOWSHEET. AT BEDSIDE, LEVI ALARM ON AND FUNCTIONING PROPERLY. BED IN LOW POSITION AND CALL LIGHT WITHIN REACH. WILL CONTINUE TO MONITOR.
--- NOTE | 2016-05-29 08:08 | NUR ---
PATIENT IN MID [place]CONNOR POSITION RESTING QUIETLY WITH EYES CLOSED. RESPIRATIONS EVEN AND UNLABORED. FAMILY PRESENT. SIDE RAILS UP X2. BED IN LOW POSITION. CALL LIGHT IN REACH.
[2016-05-29 08:18] VITALS: BP 133/49
--- NOTE | 2016-05-29 09:15 | NUR ---
BEGAN TO REPLACE POTASSIUM PER PROTOCOL AT THIS TIME. WILL MONITOR HOW PT TOLERATES.
[2016-05-29 11:53] VITALS: BP 116/47
--- NOTE | 2016-05-29 12:40 | NUR ---
WAS CALLED INTO PT ROOM BY ASKING IF I HAD REMOVED PT IV, I TOLD HIM NO. SEEMS THAT THE PT HAD PULLE OUT IV. SITE NOT BLEEDING. RESITED TO RIGHT FOREARM, 20G, FLUSHED WITH 10CC OF NS AND SECURED WITH OP-SITE AND TAPE. IV FLUIDS RESTARTED. BED IN LOW POSITION, LEVI ALARM ON, CALL LIGHT WITHIN REACH. WILL CONTINUE TO MONITOR.
--- NOTE | 2016-05-29 13:30 | NUR ---
INFORMED DR. KEVIN THAT PT HAD DNR ON CHART AND NEEDED TO BE ORDERED IN SYSTEM. WAS TOLD ORDERS WOULD BE PLACED.
--- NOTE | 2016-05-29 13:32 | NUR ---
WENT INTO PT ROOM DUE TO IV PUMP ALARMING, PT WAS ATTEMPTING TO SIT UP TO THE SIDE OF THE BED, IV CATH WAS LAYING IN THE BED, IV TUBING HAD BEEN RIPPED APART AND BLOOD WAS ON BED AND POURING FROM IV SITE. HELD PRESSURE APPLIED DRESSING TO SITE. CHANGED PT LINEN. ATTEMPTED TO ORIENT PT BUT WAS UNSUCCESSFUL, PT DOES NOT UNDERSTAND THE IV. SPOKE WITH DR. KEVIN AND WAS TOLD TO CONTINUE TO RE-SITE IF IV COMES OUT. WILL CONTINUE TO MONITOR.
--- NOTE | 2016-05-29 14:50 | NUR ---
RESITED IV TO RIGHT FOREARM, 20G, FLUSHED WITH 10ML OF NS AND SECURED WITH OP-SITE AND TAPE. WRAPPED WITH CURLEX. BED IN LOW POSITION AND CALL LIGHT WITHIN REACH. WOLL CONTINUE TO MONITOR.
[2016-05-29 15:46] LABS: HEMATOCRIT 27.1 % (36.0-48.0); HEMOGLOBIN 8.6 g/dL (12-16)
[2016-05-29 16:15] VITALS: BP 185/54
--- NOTE | 2016-05-29 16:15 | NUR ---
20 GAUGE IV SITED TO LEFT UPPER ARM X1 ATTEMPT. FLUSHES EASY WITH BRISK BLOOD RETURN PRESENT. SECURED WITH TAPE AND TEGADERM. WRAPPED WITH KERLEX.
--- NOTE | 2016-05-29 18:17 | NUR ---
PT CONTINUES TO PICK AT IV SITE, AND TEAR THE IV TUBING. WRAPPED IV WITH CURLEX AND WRAPPED OPPISITE ARM WITH CURLEX WELL TO HELP DISTRACT PT FROM IV. AT BEDSIDE, BED IN LOW POSITION AND CALL LIGHT WITHIN REACH. WILL CONTINUE TO MONITOR.
--- NOTE | 2016-05-29 20:30 | NUR ---
ASSISTED PATIENT TO THE RESTROOM AND BACK TO BED. BED IS IN LOWEST POSITION, CALL LIGHT WITHIN REACH, AND LEVI ALARM ON. ENCOURAGED PATIENT AND TO CALL IF THEY HAVE NEEDS.
[2016-05-29 21:54] LABS: HEMATOCRIT 23.9 % (36.0-48.0)
[2016-05-29 22:04] LABS: HEMOGLOBIN 7.5 g/dL (12-16)
[2016-05-29 22:19] VITALS: BP 139/45
--- NOTE | 2016-05-29 22:52 | NUR ---
DR DIXON GAVE BLOOD PARAMATERS: HCT <28 TRANSFUSE 1 UNIT [facility], HCT <26 TRANSFUSE 2 UNTI [facility].
[2016-05-30] VITALS (18 sets, daily range): BP systolic 105–155; BP diastolic 37–89; Ht 172.7 cm; Wt 73.9 kg
--- NOTE | 2016-05-30 00:03 | NUR ---
FIRST UNIT OF BLOOD STARTED AT MIDNIGHT, VERIFIED WITH WOLF AGUILAR
--- NOTE | 2016-05-30 02:49 | NUR ---
PATIENT SLEEPING, SECOND UNIT OF BLOOD STARTED.
--- NOTE | 2016-05-30 05:38 | NUR ---
PATIENT SLEPT MOST OF THE NIGHT, PULLED AT THE IV LINE A FEW TIMES. 2 UNIST OF BLOOD WERE INFUSED WITH NO REACTION. PATIENT HIGHLY CONFUSED. HAS LEVI MAT ON BED AND AT BEDSIDE.
[2016-05-30 07:12] LABS: HEMOGLOBIN 10.9 g/dL (12-16)
[2016-05-30 07:26] LABS: POTASSIUM - SERUM 3.6 mmol/L (3.5-5.1)
--- NOTE | 2016-05-30 07:30 | NUR ---
QUIET IN ROOM VERY CONFUSED IV CONT TO RT UPPER ARM AT PRESENT DENIES ANY NEEDS AT PRESENT.
[2016-05-30 10:06] LABS: BASOPHILS 0.4 % (0.0-2.0); EOSINOPHILS 1.7 % (0-7); IMMATURE GRANULOCYTES 0.4 % (0-5); LYMPHOCYTES 15.1 % (15-50); MCH 27.3 pg (26.0-34.0); MCHC 32.4 g/dL (31.0-37.0); MCV 84.1 fL (80.0-100.0); MEAN PLATELET VOLUME 9.7 fL (7.4-10.4); MONOCYTES 9.9 % (2-11); NEUTROPHILS 72.5 % (40-80); PLATELET COUNT 257 10x3/uL (130-400); RBC 3.96 10x6/uL (4.00-5.40); RDW 14.2 % (11.5-14.5); WBC 5.2 10x3/uL (4.8-10.8)
[2016-05-30 10:14] LABS: ALBUMIN 2.5 g/dL (3.4-5.0); ALKALINE PHOSPHATASE 94 U/L (46-116); ALT (SGPT) 18 U/L (10-68); BILIRUBIN - TOTAL 0.38 mg/dL (0.2-1.3); CALCIUM 8.2 mg/dL (8.5-10.1); CARBON DIOXIDE 20.2 mmol/L (21.0-32.0); CHLORIDE - SERUM 109 mmol/L (98-107); CREATININE - SERUM 0.7 mg/dL (0.6-1.3); GLUCOSE 87 mg/dL (74-106); SODIUM 141 mmol/L (136-145); eGFR NON AFRICAN AMERICAN 86 mL/min (90-120)
[2016-05-30 10:19] LABS: CALC OSMOLALITY 278 mosm/kg (275-300); UREA NITROGEN 10 mg/dL (7-18)
--- NOTE | 2016-05-30 10:32 | NUR ---
SITTING UP IN CHAIR WITH CHAIR ALARM KELTON IN PLACE.
--- NOTE | 2016-05-30 12:23 | NUR ---
AT BEDSIDE AT PRESENT DENIES ANY NEEDS AT THIS TIME .
[2016-05-30 12:51] LABS: HEMATOCRIT 34.3 % (36.0-48.0); HEMOGLOBIN 11.2 g/dL (12-16)
--- NOTE | 2016-05-30 14:38 | NUR ---
CONT CONFUSED AND WONDERING WHEN NOT AT BEDSIDE AT PRESENT.
--- NOTE | 2016-05-30 16:17 | NUR ---
VS NEW ORDERS R/N AT PRESENT.
--- NOTE | 2016-05-30 17:02 | NUR ---
STATUS REMAINS UNCHGD AT PRESENT.
--- NOTE | 2016-05-30 21:58 | NUR ---
REC'D PATIENT LYING SEMI FOWLERS IN BED. ALERT AND ORIENTED X1. IS AT BEDSIDE. NO DISTRESS NOTED WITH PATIENT. WANTED BEDRAIL TO COME DOWN AND TOLD HER WHY IT COULD NOT COME DOWN. DENIES FURTHER NEEDS. INTRUCTED TO CALL IF NEEDED ANYTHING. BED LOW, LOCKED, CALL LIGHT IN REACH, ALARM ON.
--- NOTE | 2016-05-30 22:00 | NUR ---
ADMINISTERED MEDS PRESCRIBED. TURNED TURN AIR IN ROOM. DIDNT KNOW THEY COULD CONTROL IT FROM THEIR ROOM. BED LOW, LOCKED, CALL LIGHT IN REACH, ALARM ON.
[2016-05-31] VITALS: BP 85/32
--- NOTE | 2016-05-31 01:05 | NUR ---
EYE CLOSED RESPRIATIONS WITH EASE AND UNLABORED. SR UP X2 CALL LIGHT WITHIN REACH.
--- NOTE | 2016-05-31 01:55 | NUR ---
PATIENT ASLEEP IN BED WITH AT BEDSIDE. NO DISTRESS NOTED. DENIES NEEDS AT THIS TIME. INTRUCTED TO CALL IF NEEDED ANYTHING.
[2016-05-31 04:00] VITALS: BP 160/57
--- NOTE | 2016-05-31 05:38 | NUR ---
PATIENT IS SLEEPING. AT BEDSIDE. ADMINISTERED MEDS PRESCRIBED. DENIED PAIN AT THIS TIME. DENIES FURTHER NEEDS AT THIS TIME. INSTUCTED TO CALL IF NEEDED ANYTHING. BE LOW, LOCKED, CALL LIGHT IN REACH.
[2016-05-31 05:54] LABS: BASOPHILS 0.4 % (0.0-2.0); EOSINOPHILS 2.7 % (0-7); HEMATOCRIT 34.3 % (36.0-48.0); IMMATURE GRANULOCYTES 0.4 % (0-5); LYMPHOCYTES 22.9 % (15-50); MCH 26.7 pg (26.0-34.0); MCHC 32.1 g/dL (31.0-37.0); MCV 83.3 fL (80.0-100.0); MEAN PLATELET VOLUME 9.2 fL (7.4-10.4); NEUTROPHILS 63.6 % (40-80); PLATELET COUNT 251 10x3/uL (130-400); RBC 4.12 10x6/uL (4.00-5.40); RDW 14.5 % (11.5-14.5); WBC 5.1 10x3/uL (4.8-10.8)
[2016-05-31 06:24] LABS: ALBUMIN 2.4 g/dL (3.4-5.0); ALKALINE PHOSPHATASE 99 U/L (46-116); ALT (SGPT) 19 U/L (10-68); CALCIUM 8.4 mg/dL (8.5-10.1); CARBON DIOXIDE 24.3 mmol/L (21.0-32.0); CHLORIDE - SERUM 107 mmol/L (98-107); CREATININE - SERUM 0.7 mg/dL (0.6-1.3); GLUCOSE 84 mg/dL (74-106); PROTEIN - SERUM 5.8 g/dL (6.4-8.2); SODIUM 141 mmol/L (136-145); eGFR NON AFRICAN AMERICAN 86 mL/min (90-120)
[2016-05-31 06:32] LABS: CALC OSMOLALITY 277 mosm/kg (275-300); UREA NITROGEN 7 mg/dL (7-18)
--- NOTE | 2016-05-31 07:15 | NUR ---
SLEEPING QUIETLY AT PRESENT DENIES ANY NEEDS AT THIS TIME QUIET IN ROOM.
[2016-05-31 08:37] VITALS: BP 135/46
--- NOTE | 2016-05-31 09:00 | NUR ---
MEDS GIVEN CRUSHED IN APPLESAUCE.
--- NOTE | 2016-05-31 10:00 | NUR ---
SITTING UP IN CHAIR CONT CONFUSED STILL AT BEDSIDE.
--- NOTE | 2016-05-31 11:26 | NUR ---
CM ASSESSMENT NOTE: PANEL INSTALLER FOR DR. ZAIDI SPOKE WITH CM ABOUT HUSBANDS REQUEST FOR HOSPICE. CM SPOKE WITH SPOUSE AND HE CHOSE [facility]. CM SPOKE WITH [facility] AND REF. SENT. THEY WILL COME AND TALK WITH TODAY.
--- NOTE | 2016-05-31 11:38 | NUR ---
SITTING UP IN CHAIR AT BEDSIDE.
[2016-05-31 12:24] VITALS: BP 132/37
--- NOTE | 2016-05-31 14:00 | NUR ---
STILL WAITING TO GO TO [facility] AT PRESENT N/C.
--- NOTE | 2016-05-31 15:06 | NUR ---
CM REASSESSMENT NOTE: PATIENT IS BEING ADMITTED TO HOSPICE TODAY ON RETURN TO THE [facility]. THE FACILITY IS PICKING PATIENT UP AROUND 3:20 IN THEIR VAN. SPOUSE AWARE
--- NOTE | 2016-05-31 16:00 | NUR ---
CALL TO [facility] TALKED TO LIGIA NURSE MILLIE FOR TO DRIVE TO [facility].
--- NOTE | 2016-05-31 16:30 | NUR ---
LEFT VIA W/C AT PRESENT AT BEDSIDE.
== END 2016-05-31 17:37 | disposition home health service (06) | DRG 375 ==
LOC: D.ER 19:46 → OBSVTIME 05-29 01:27 → D.MS 05-29 01:27
PROVIDERS: Family Medicine; Surgery; ADMIT Family Medicine
DX: C18.2 Malignant neoplasm of ascending colon (principal); F02.81 Dementia in other diseases classified elsewhere, unspecified severity, with behavioral disturbance; D62 Acute posthemorrhagic anemia; Z66 Do not resuscitate; G30.9 Alzheimer's disease, unspecified